=== PATIENT | male | born 1940 | race Caucasian/White ===

== ENCOUNTER → 2017-01-11 | Day surgery (SDC) | payer OTHER ==
[2016-12-29 13:27] VITALS: BMI 31.0
--- NOTE | 2016-12-29 14:14 | PAT Medication Instructions ---
Service Date Dec 29, 2016. Current Home Medication List Cholecalciferol (Vitamin D3), 1 TAB PO QAM Fish Oil ([place]-3), 1 CAP PO BID Fluticasone Propionate (Nasal) (Flonase Allergy Relief), 2 SPRAYS JACQUELIN PRN Lisinopril (Zestril), 10 MG PO QAM Multivitamin (Multivitamin), 1 TAB PO QAM Simvastatin (Zocor), 40 MG PO QPM Tramadol (Ultram), 50 MG PO Q8H PRN for Pain [Vitamin D3], 1 TAB PO QAM Medication Instructions For Your Scheduled Surgery - Hold the following medications starting 12/29/16: Fish Oil ([place]pton-3), 1 CAP PO BID - Hold the following medications the morning of surgery: Cholecalciferol (Vitamin D3), 1 TAB PO QAM Lisinopril (Zestril), 10 MG PO QAM Multivitamin (Multivitamin), 1 TAB PO QAM [Vitamin D3], 1 TAB PO QAM - Take the following medications the morning of surgery with a sip of water: Tramadol (Ultram), 50 MG PO Q8H PRN for Pain (okay to take up to 4 hours prior to surgery if needed) Fluticasone Propionate (Nasal) (Flonase Allergy Relief), 2 SPRAYS JACQUELIN PRN (if needed) - Take the following medications as scheduled the night before surgery: Simvastatin (Zocor), 40 MG PO QPM Tramadol (Ultram), 50 MG PO Q8H PRN for Pain (if needed) Fluticasone Propionate (Nasal) (Flonase Allergy Relief), 2 SPRAYS JACQUELIN PRN (if needed) If you have any questions please call us at [phone] or [phone] or [phone]
[2016-12-29 14:29] LABS: URINE APPEARANCE CLEAR (CLEAR); URINE BILIRUBIN NEG (NEG); URINE COLOR DK YELLOW; URINE NITRITE NEG (NEG); URINE PH 5.5 (4.5-7.5); URINE SPECIFIC GRAVITY 1.021 (1.000-1.030); UROBILINOGEN NEG (NEG); ZZUR CULT IF INDIC CLEAN CATCH NO
[2016-12-29 14:31] LABS: MANUAL MICROSCOPIC REQUIRED? NO; REVIEW REQ? NO
[2016-12-29 14:32] LABS: BUN/CREATININE RATIO 14.4 (10-20); CALCIUM 9.2 mg/dl (8.5-10.1); CREATININE 0.84 mg/dl (0.60-1.40); POTASSIUM 4.3 mmol/L (3.5-5.1)
--- NOTE | 2016-12-29 14:41 | DIAGNOSTIC IMAGING REPORT ---
CHEST PREADMISSION(PA/LAT) CLINICAL HISTORY: PAT preoperative evaluation COMPARISON STUDY: No previous studies for comparison. FINDINGS: The bones soft tissues and hemidiaphragms are normal. The cardiomediastinal silhouette is normal. The lungs are clear. The pulmonary vasculature is normal. IMPRESSION: Negative chest. The above report was generated using voice recognition software. It may contain grammatical, syntax or spelling errors. Electronically signed by: Dani Stone M.D. 12/29/2016 2:39 PM Dictated Date/Time: 12/29/2016 2:39 PM
[2016-12-29 14:45] LABS: HEMATOCRIT 29.9 % (42-52); MEAN CELL VOLUME 103.1 fL (80-100); MEAN CORPUSCULAR HEMOGLOBIN 32.8 pg (25-34); MEAN CORPUSCULAR HGB CONC 31.8 g/dl (32-36); WHITE BLOOD COUNT 2.04 K/uL (4.8-10.8)
[2016-12-29 14:50] LABS: MEAN PLATELET VOLUME 10.8 fL (7.4-10.4); PLATELET COUNT 86 K/uL (130-400)
[2016-12-29 14:59] LABS: ANISOCYTOSIS PRESENT; BASO % 0.5 %; BASO ABS # 0.01 K/uL (0-0.2); COMPLETE YES; EOS % 0.5 %; LYMPH ABS # 1.06 K/uL (1.2-3.4); PLT ESTIMATE DECREASED; POLYCHROMASIA 1+; TEAR DROP CELLS 2+
[~2017-01-11] VITALS: Ht 180.3 cm; Wt 103.0 kg
[~2017-01-11] MED LIST: BACITRACIN 50000 UNIT VIAL ONE; BUPIVACAINE/EPINEPHRINE 0.5% MPF 1:200,000 30 ML VIAL ONE; CEFAZOLIN 2000 MG/60 ML D5W IV SCH; CHOL1000 PO; FENTANYL CITRATE INJ 50 MCG/1 ML 2 ML VIAL ONE; FLUT0.15 NAE; LACTATED RINGER'S 1000ML 1,000 ML IV SCH; LISI-461 PO; MULT-506 PO; OMEG10007 PO; SIMV40TA2 PO; TAMS0.4C38 PO; TRAM-10 PO; VITAMIN D3 PO
[2017-01-11 06:26] VITALS: BP 151/72; PULSE 65; TEMP 36.7; O2SAT 98; Ht 180.3 cm; Wt 103.0 kg
[2017-01-11 06:42] LABS: HEMATOCRIT 27.3 % (42-52); MEAN CELL VOLUME 101.5 fL (80-100); RED BLOOD COUNT 2.69 M/uL (4.7-6.1)
[2017-01-11 06:49] LABS: MEAN CORPUSCULAR HGB CONC 31.5 g/dl (32-36); MEAN PLATELET VOLUME 9.6 fL (7.4-10.4); PLATELET COUNT 74 K/uL (130-400)
--- NOTE | 2017-01-11 08:04 | Anesthesiology Progress Note ---
Anesthesia Progress Note Date of Service Jan 11, 2017. Progress Notes The patient's surgery is being cancelled today by Dr. Yeh due to a WBC count of 1.7 because of a concern for postoperative infection. There is also some concern about his platelet count of 74 given that he had an adverse reaction to platelet transfusion after his intracranial bleed on 07/30/16. Additionally, his hemoglobin today is 8.6. The patient will need to see his pumper helper to be optimized prior to surgery.
== END | disposition home or self-care (01) ==
LOC: C.ACU 05:46
PROVIDERS: ATTEND Orthopaedic Surgery Orthopaedic Surgery of the Spine
DX: M48.061 Spinal stenosis, lumbar region without neurogenic claudication (principal); Z53.9 Procedure and treatment not carried out, unspecified reason